=== PATIENT | male | born 1955 | race Caucasian/White ===

== ENCOUNTER 2016-07-20 12:59 | Inpatient (IN) | payer BC ==
[2016-07-20] MEDS ORDERED: HYDROcodone/Acetaminophen 7.5/325 mg Tablet PO PRN (17:21)
[2016-07-20] MEDS ORDERED: Acetaminophen 325 MG TAB PO PRN (17:36)
[2016-07-20] MEDS: Enoxaparin Sodium 40 MG/0.4 ML SYRINGE SC SCH (18:22)
[2016-07-20] MEDS: HYDROcodone/Acetaminophen 7.5/325 mg Tablet PO PRN (18:22)
[2016-07-20] MEDS ORDERED: Docusate 100 MG CAP PO PRN (21:00)
[2016-07-20 21:20] LABS: Bilirubin Negative (Negative); Blood, Urine Negative (Negative); Glucose, Urine (Dipstick) Negative (Negative); Leukocyte Negative (Negative); Nitrite Negative (Negative); Protein, Urine (Dipstick) Negative (Neg-Trace); Specific Gravity, Urine 1.015 (1.005-1.030); Urobilinogen 0.2 mg/dL (0.2-1.0)
[2016-07-20 21:27] LABS: Clarity Slightly Cloudy (Clear)
[2016-07-20 21:29] LABS: Bacteria/HPF Rare-Few HPF (None Seen); RBC/HPF 0-3 HPF (0-3); Squamous Epithelial 0-3 HPF (0-3); WBC/HPF 0-3 HPF (0-3)
[2016-07-20] MEDS ORDERED: ceFAZolin Sodium 2 GM/100 ML BAG IVPB SCH (22:00)
[2016-07-21] MEDS: HYDROcodone/Acetaminophen 7.5/325 mg Tablet PO PRN ×6 (00:18→22:30)
[2016-07-21 06:25] LABS: #Basophils 0.1 thou/uL (0.0-0.2); #Eosinphils 0.3 thou/uL (0.0-0.7); #Lymphocytes 1.5 thou/uL (1.20-3.40); #Monocytes 0.7 thou/uL (0.11-0.59); #Neutrophils 6.1 thou/uL (1.40-6.50); %Basophils 1.1 % (0.0-1.0); %Eosinophils 3.5 % (0.0-10.0); %Lymphocytes 17.1 % (21.0-51.0); %Monocytes 8.1 % (0.0-10.0); %Neutrophils 70.1 % (42.0-75.0); Mean Corpuscular HGB CONC 33.2 g/dL (32.0-36.0); Mean Corpuscular Hemoglobin 29.8 pg (27.0-31.0); Mean Corpuscular Volume 89.8 fl (80.0-94.0); Mean Platelet Volume 7.3 fL (7.4-10.4); Platelet Count 229 thou/uL (130-400); Red Blood Cell (RBC) Count 4.04 mill/uL (4.70-6.10); White Blood Cell (WBC) Count 8.7 thou/uL (4.8-10.8)
[2016-07-21 06:43] LABS: ALT (SGPT) 33 U/L (0-55); AST (SGOT) 32 U/L (5-34); Albumin 2.9 g/dL (3.4-4.8); Alkaline Phosphatase 80 U/L (40-150); Anion Gap 12 mmol/L (10-20); BUN (Urea Nitrogen) 7 mg/dL (8.4-25.7); Bilirubin, Total 0.4 mg/dL (0.2-1.2); Calc. Creatinine Clearance 196 mL/min (70-130); Calcium 8.8 mg/dL (7.8-10.44); Chloride 104 mmol/L (98-107); Estimated GFR-MDRD Greater than 90; Globulin 2.8 g/dL (2.4-3.5); Glucose 127 mg/dL (80-115); Potassium 3.8 mmol/L (3.5-5.1); Protein, Total 5.7 g/dL (5.8-8.1); Sodium 139 mmol/L (136-145)
[2016-07-21 06:54] LABS: Carbon Dioxide 27 mmol/L (23-31)
[2016-07-21] MEDS: Floranex Packet PO SCH (08:54)
[2016-07-21] MEDS: Lisinopril 10 MG TAB PO SCH (08:54)
[2016-07-21] MEDS: Allopurinol 100 MG TAB PO SCH (08:54)
[2016-07-21] MEDS: Hydrochlorothiazide 25 MG TAB PO SCH (08:56)
[2016-07-21] MEDS ORDERED: Lisinopril 10 MG TAB PO SCH (09:00)
[2016-07-21] MEDS: Enoxaparin Sodium 40 MG/0.4 ML SYRINGE SC SCH (17:16)
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
[2016-07-22] MEDS: HYDROcodone/Acetaminophen 7.5/325 mg Tablet PO PRN ×5 (02:32→19:43)
[2016-07-22] MEDS: Floranex Packet PO SCH (08:33)
[2016-07-22] MEDS: Lisinopril 10 MG TAB PO SCH (08:33)
[2016-07-22] MEDS: Hydrochlorothiazide 25 MG TAB PO SCH (08:35)
[2016-07-22] MEDS: Allopurinol 100 MG TAB PO SCH (11:03)
[2016-07-22] MEDS: Cyclobenzaprine 10 MG TAB PO PRN (12:56)
[2016-07-22] MEDS: Enoxaparin Sodium 40 MG/0.4 ML SYRINGE SC SCH (18:04)
[2016-07-23] MEDS: HYDROcodone/Acetaminophen 5/325 mg Tablet PO PRN ×2 (00:09→04:55)
[2016-07-23] MEDS: Floranex Packet PO SCH (08:27)
[2016-07-23] MEDS: Allopurinol 100 MG TAB PO SCH (08:27)
[2016-07-23] MEDS: Lisinopril 10 MG TAB PO SCH (08:28)
[2016-07-23] MEDS: Cyclobenzaprine 10 MG TAB PO PRN ×2 (08:28→23:48)
[2016-07-23] MEDS: Hydrochlorothiazide 25 MG TAB PO SCH (08:28)
[2016-07-23] MEDS: HYDROcodone/Acetaminophen 7.5/325 mg Tablet PO PRN ×4 (08:54→23:17)
[2016-07-23] MEDS: Enoxaparin Sodium 40 MG/0.4 ML SYRINGE SC SCH (18:04)
[2016-07-24] MEDS: HYDROcodone/Acetaminophen 7.5/325 mg Tablet PO PRN ×5 (04:12→23:54)
[2016-07-24] MEDS: Floranex Packet PO SCH (08:54)
[2016-07-24] MEDS: Allopurinol 100 MG TAB PO SCH (08:54)
[2016-07-24] MEDS: Lisinopril 10 MG TAB PO SCH (08:54)
[2016-07-24] MEDS: Hydrochlorothiazide 25 MG TAB PO SCH (08:55)
[2016-07-24] MEDS: Cyclobenzaprine 10 MG TAB PO PRN ×2 (13:42→23:55)
[2016-07-24] MEDS: Enoxaparin Sodium 40 MG/0.4 ML SYRINGE SC SCH (17:54)
[2016-07-25] MEDS: HYDROcodone/Acetaminophen 7.5/325 mg Tablet PO PRN ×5 (06:13→22:46)
[2016-07-25 06:20] LABS: #Basophils 0.1 thou/uL (0.0-0.2); #Eosinphils 0.3 thou/uL (0.0-0.7); #Lymphocytes 2.5 thou/uL (1.20-3.40); #Monocytes 0.5 thou/uL (0.11-0.59); #Neutrophils 4.5 thou/uL (1.40-6.50); %Basophils 0.8 % (0.0-1.0); %Eosinophils 3.7 % (0.0-10.0); %Lymphocytes 31.6 % (21.0-51.0); %Monocytes 6.9 % (0.0-10.0); Hemoglobin 12.6 g/dL (14.0-18.0); Mean Corpuscular HGB CONC 33.6 g/dL (32.0-36.0); Mean Corpuscular Hemoglobin 30.4 pg (27.0-31.0); Mean Corpuscular Volume 90.4 fl (80.0-94.0); Mean Platelet Volume 7.3 fL (7.4-10.4); Platelet Count 314 thou/uL (130-400); RBC Distribution Width 12.5 % (11.5-14.5); Red Blood Cell (RBC) Count 4.14 mill/uL (4.70-6.10); White Blood Cell (WBC) Count 7.9 thou/uL (4.8-10.8)
[2016-07-25 06:42] LABS: ALT (SGPT) 17 U/L (0-55); AST (SGOT) 18 U/L (5-34); Albumin 3.2 g/dL (3.4-4.8); Alkaline Phosphatase 76 U/L (40-150); Anion Gap 12 mmol/L (10-20); BUN (Urea Nitrogen) 12 mg/dL (8.4-25.7); Bilirubin, Total 0.3 mg/dL (0.2-1.2); Calc. Creatinine Clearance 183 mL/min (70-130); Calcium 9.1 mg/dL (7.8-10.44); Carbon Dioxide 26 mmol/L (23-31); Chloride 106 mmol/L (98-107); Estimated GFR-MDRD Greater than 90; Globulin 2.8 g/dL (2.4-3.5); Glucose 116 mg/dL (80-115); Potassium 4.2 mmol/L (3.5-5.1); Sodium 140 mmol/L (136-145)
[2016-07-25] MEDS: Hydrochlorothiazide 25 MG TAB PO SCH (08:45)
[2016-07-25] MEDS: Allopurinol 100 MG TAB PO SCH (08:45)
[2016-07-25] MEDS: Lisinopril 10 MG TAB PO SCH (08:46)
[2016-07-25] MEDS: Floranex Packet PO SCH (08:48)
[2016-07-25] MEDS: Cyclobenzaprine 10 MG TAB PO PRN ×2 (13:08→18:49)
[2016-07-25] MEDS: Enoxaparin Sodium 40 MG/0.4 ML SYRINGE SC SCH (17:35)
[2016-07-26] MEDS: HYDROcodone/Acetaminophen 7.5/325 mg Tablet PO PRN ×5 (04:06→22:17)
[2016-07-26] MEDS: Floranex Packet PO SCH (09:09)
[2016-07-26] MEDS: Allopurinol 100 MG TAB PO SCH (09:09)
[2016-07-26] MEDS: Lisinopril 10 MG TAB PO SCH (09:09)
[2016-07-26] MEDS: Hydrochlorothiazide 25 MG TAB PO SCH (09:10)
[2016-07-26] MEDS: Cyclobenzaprine 10 MG TAB PO PRN ×2 (13:14→22:18)
[2016-07-26] MEDS: Enoxaparin Sodium 40 MG/0.4 ML SYRINGE SC SCH (17:46)
[2016-07-27] MEDS: HYDROcodone/Acetaminophen 7.5/325 mg Tablet PO PRN ×5 (02:25→23:10)
[2016-07-27] MEDS: Floranex Packet PO SCH (08:43)
[2016-07-27] MEDS: Allopurinol 100 MG TAB PO SCH (08:45)
[2016-07-27] MEDS: Lisinopril 10 MG TAB PO SCH (08:46)
[2016-07-27] MEDS: Hydrochlorothiazide 25 MG TAB PO SCH (08:47)
[2016-07-27] MEDS: Enoxaparin Sodium 40 MG/0.4 ML SYRINGE SC SCH (18:09)
[2016-07-27] MEDS: Cyclobenzaprine 10 MG TAB PO PRN (23:10)
[2016-07-28] MEDS: HYDROcodone/Acetaminophen 7.5/325 mg Tablet PO PRN ×4 (05:33→21:46)
[2016-07-28] MEDS: Floranex Packet PO SCH (08:39)
[2016-07-28] MEDS: Lisinopril 10 MG TAB PO SCH (08:39)
[2016-07-28] MEDS: Hydrochlorothiazide 25 MG TAB PO SCH (08:39)
[2016-07-28] MEDS: Allopurinol 100 MG TAB PO SCH (08:40)
[2016-07-28] MEDS: Enoxaparin Sodium 40 MG/0.4 ML SYRINGE SC SCH (17:44)
[2016-07-28] MEDS: Cyclobenzaprine 10 MG TAB PO PRN (21:45)
[2016-07-29] MEDS: HYDROcodone/Acetaminophen 7.5/325 mg Tablet PO PRN ×5 (03:03→22:07)
[2016-07-29] MEDS: Floranex Packet PO SCH (08:11)
[2016-07-29] MEDS: Allopurinol 100 MG TAB PO SCH (08:12)
[2016-07-29] MEDS: Hydrochlorothiazide 25 MG TAB PO SCH (08:12)
[2016-07-29] MEDS: Lisinopril 10 MG TAB PO SCH (08:13)
[2016-07-29] MEDS: Cyclobenzaprine 10 MG TAB PO PRN ×2 (13:09→22:06)
[2016-07-29] MEDS: Enoxaparin Sodium 40 MG/0.4 ML SYRINGE SC SCH (18:10)
[2016-07-30] MEDS: HYDROcodone/Acetaminophen 7.5/325 mg Tablet PO PRN ×4 (05:42→22:02)
[2016-07-30] MEDS: Hydrochlorothiazide 25 MG TAB PO SCH (09:07)
[2016-07-30] MEDS: Allopurinol 100 MG TAB PO SCH (09:07)
[2016-07-30] MEDS: Floranex Packet PO SCH (09:08)
[2016-07-30] MEDS: Lisinopril 10 MG TAB PO SCH (09:08)
[2016-07-30 10:21] VITALS: BMI 37.8
--- NOTE | 2016-07-30 13:15 | PRG ---
DATE OF SERVICE: 07/26/2016 PRIMARY CARE PHYSICIAN: Dr. Villalobos in [place] ADMITTING PHYSICIAN: Dr. Patino SUBJECTIVE: The patient is doing a lot better, the pain on his chest and back had resolved. He is able to transfer from bed to chair independently, transfers from bed to bathroom using his rolling w alker independently. He ambulated 400-500 feet using rolling walker independently. His left lower extremity strength is about 4/5. Case management had initiated referral to standard home health to assist him with needs to continue IV antibiotics at home. PHYSICAL EXAMINATION: VITAL SIGNS: Blood pressure of 108/67, pulse of 80, temperature of 97.6, O2 sat 95% on room air. GENERAL: The patient is alert, oriented, not in respiratory distress. HEENT: Normocephalic, atraumatic. Pupils equally reactive to light. NECK: Supple. Negative for lymphadenopathy. CHEST AND LUNGS: Symmetrical expansion. Clear to auscultation. HEART: Regular rate and rhythm. Negative for murmur. SKIN: Positive for incision with meggan, dry and intact on thoracic area. Positive for PICC line on the right upper extremity. ABDOMEN: Flat, soft, nontender, normoactive bowel sounds. MUSCULOSKELETAL: Normal range of motion of bilateral upper and lower extremities, no tenderness on joints. Good strength on the left lower extremity, has 3/5 strength on the right lower extremity. NEUROLOGIC: Oriented x3. PSYCHIATRIC: Appropriate affect and demeanor. ASSESSMENT: 1. Acute thoracic compression with septic arthritis and vertebral osteomyelitis at the level of T3 and T4 secondary to methicillin-sensitive Staphylococcus aureus, status post decompression, laminect laya and incision and debridement with washout. 2. Bilateral lower extremity weakness, improving. 3. Gait instability. 4. Hypertension. 5. Acquired asplenia. 6. Former smoker. 7. Morbid obesity. 8. Gout. PLAN: 1. Continue IV cefazolin to complete for 6 weeks. The patient is doing well with physical and occu pational therapy. He will continue treatments until he is discharged. He is requesting to continue IV antibiotics at home with home health assistance. 2. Anticipate discharge on 08/01/2016. 3. Scheduled followup with Dr. Steiner and Dr. Mcgill in 2 weeks.
[2016-07-30] MEDS: Enoxaparin Sodium 40 MG/0.4 ML SYRINGE SC SCH (17:41)
[2016-07-30] MEDS: Cyclobenzaprine 10 MG TAB PO PRN (22:02)
[2016-07-31] MEDS: HYDROcodone/Acetaminophen 7.5/325 mg Tablet PO PRN ×4 (02:04→21:28)
[2016-07-31] MEDS: Lisinopril 10 MG TAB PO SCH (09:18)
[2016-07-31] MEDS: Allopurinol 100 MG TAB PO SCH (09:18)
[2016-07-31] MEDS: Floranex Packet PO SCH (09:18)
[2016-07-31] MEDS: Hydrochlorothiazide 25 MG TAB PO SCH (09:18)
[2016-07-31] MEDS ORDERED: HYDROcodone/Acetaminophen 7.5/325 mg Tablet ONE (14:21)
[2016-07-31] MEDS ORDERED: Cyclobenzaprine 10 MG TAB ONE (14:21)
[2016-07-31] MEDS: Cyclobenzaprine 10 MG TAB PO PRN ×2 (14:26→21:28)
[2016-07-31] MEDS: Enoxaparin Sodium 40 MG/0.4 ML SYRINGE SC SCH (17:35)
[2016-08-01] MEDS: Cyclobenzaprine 10 MG TAB PO PRN ×3 (05:54→20:53)
[2016-08-01] MEDS: HYDROcodone/Acetaminophen 7.5/325 mg Tablet PO PRN ×4 (06:26→20:53)
[2016-08-01 06:35] LABS: #Basophils 0.1 thou/uL (0.0-0.2); #Eosinphils 0.4 thou/uL (0.0-0.7); #Lymphocytes 2.2 thou/uL (1.20-3.40); #Monocytes 0.6 thou/uL (0.11-0.59); #Neutrophils 3.8 thou/uL (1.40-6.50); %Basophils 1.3 % (0.0-1.0); %Eosinophils 5.2 % (0.0-10.0); %Lymphocytes 31.1 % (21.0-51.0); %Monocytes 8.1 % (0.0-10.0); %Neutrophils 54.2 % (42.0-75.0); Hemoglobin 13.1 g/dL (14.0-18.0); Mean Corpuscular HGB CONC 32.6 g/dL (32.0-36.0); Mean Corpuscular Hemoglobin 29.7 pg (27.0-31.0); Mean Corpuscular Volume 91.1 fl (80.0-94.0); Mean Platelet Volume 7.5 fL (7.4-10.4); Platelet Count 288 thou/uL (130-400)
[2016-08-01 06:46] LABS: ALT (SGPT) 7 U/L (0-55); AST (SGOT) 13 U/L (5-34); Albumin 3.5 g/dL (3.4-4.8); Alkaline Phosphatase 67 U/L (40-150); Anion Gap 13 mmol/L (10-20); BUN (Urea Nitrogen) 13 mg/dL (8.4-25.7); Bilirubin, Total 0.3 mg/dL (0.2-1.2); Calc. Creatinine Clearance 175 mL/min (70-130); Carbon Dioxide 25 mmol/L (23-31); Chloride 107 mmol/L (98-107); Estimated GFR-MDRD Greater than 90; Globulin 2.6 g/dL (2.4-3.5); Glucose 117 mg/dL (80-115); Potassium 4.1 mmol/L (3.5-5.1); Protein, Total 6.1 g/dL (5.8-8.1); Sodium 141 mmol/L (136-145)
[2016-08-01] MEDS: Lisinopril 10 MG TAB PO SCH (09:46)
[2016-08-01] MEDS: Allopurinol 100 MG TAB PO SCH (09:47)
[2016-08-01] MEDS: Hydrochlorothiazide 25 MG TAB PO SCH (09:47)
[2016-08-01] MEDS: Floranex Packet PO SCH (09:47)
[2016-08-01] MEDS: Enoxaparin Sodium 40 MG/0.4 ML SYRINGE SC SCH (17:32)
[2016-08-02] MEDS: HYDROcodone/Acetaminophen 7.5/325 mg Tablet PO PRN ×2 (00:45→09:18)
[2016-08-02] MEDS: Cyclobenzaprine 10 MG TAB PO PRN (05:52)
[2016-08-02 06:12] VITALS: TEMP 97.5
[2016-08-02] MEDS: Allopurinol 100 MG TAB PO SCH (09:16)
[2016-08-02] MEDS: Floranex Packet PO SCH (09:16)
[2016-08-02] MEDS: Lisinopril 10 MG TAB PO SCH (09:17)
[2016-08-02] MEDS: Hydrochlorothiazide 25 MG TAB PO SCH (09:17)
[2016-08-02 09:31] VITALS: BP 108/72
[2016-08-02 13:15] LABS: LDH 165 U/L (125-220)
== END 2016-08-02 12:05 | disposition home health service (06) | DRG 540 ==
LOC: BURMED 16:38
PROVIDERS: ADMIT Family Medicine; ATTEND Family Medicine
DX: M46.24 Osteomyelitis of vertebra, thoracic region (principal); Q89.01 Asplenia (congenital); M46.54 Other infective spondylopathies, thoracic region; B95.61 Methicillin susceptible Staphylococcus aureus infection as the cause of diseases classified elsewhere; I10 Essential (primary) hypertension; E66.01 Morbid (severe) obesity due to excess calories; Z68.37 Body mass index [BMI] 37.0-37.9, adult; M10.9 Gout, unspecified; Z87.891 Personal history of nicotine dependence; R26.9 Unspecified abnormalities of gait and mobility
CPT/HCPCS: 36415; 80053; 81001; 83615; 85025; 86140; 87086; A4216; C1751; G8978-GP-CM; G8979-GP-CJ; G8987-GO-CL; G8988-GO-CI; J0690; J1642; J1650; J7050

== ENCOUNTER 2021-11-30 10:24 | Emergency (ER) | payer BC, MEDICARE ==
[2021-11-30] MEDS ORDERED: Fentanyl 100 MCG/2 ML VIAL ONE (11:07)
[2021-11-30] MEDS ORDERED: Acetaminophen 500 MG TAB ONE (12:25)
== END 2021-11-30 13:18 | disposition home or self-care (01) ==
LOC: BURERS 10:24
DX: S52.522A Torus fracture of lower end of left radius, initial encounter for closed fracture (principal); I10 Essential (primary) hypertension; Z79.899 Other long term (current) drug therapy; W19.XXXA Unspecified fall, initial encounter
CPT/HCPCS: J3010